=== PATIENT | female | born 1950 | race Caucasian/White ===

== ENCOUNTER → 2024-02-02 | Day surgery (SDC) | payer MEDICARE, MEDICAID ==
[~2024-02-02] VITALS: Ht 157.5 cm; Wt 63.5 kg
[~2024-02-02] MED LIST: ASPI-1497 PO; BALANCED SALT IRRIG SOLN COMB1 500ML OP NR; CHOL-36 PO; CYCLOPENTOLATE HCL 1% OPHTH DROPS 2ML LEFTEYE NR; FENTANYL CITRATE/PF 50MCG/ML 2ML VIAL ONE; FOLI-43 PO; HYALURONATE SODIUM 10 MG/ML 0.55ML SYRINGE IO ONE; KETOROLAC 30MG/ML VIAL ONE; LACTATED RINGERS 1,000 ML IV SCH; METH2.5T MT; MIDAZOLAM HCL 2 MG/2 ML VIAL ONE; PHENYLEPHRINE HCL 10% OPHTH DROPS 5ML LEFTEYE NR; PRAV20TA57 PO; PRED2.5T4 PO; TROPICAMIDE 1% OPHTH DROPS 15ML LEFTEYE NR; TRYPAN BLUE 0.5 ML DISP.SYRIN IO ONE
[2024-02-02 10:49] LABS: BASOPHILS % 1.1 % (0.0-2.0); EOSINOPHILS % 4.4 % (0.0-5.0); HEMATOCRIT. 34.6 % (36.0-48.0); HEMOGLOBIN. 11.7 g/dL (12.0-16.0); LYMPHOCYTES % 40.2 % (20.0-50.0); MEAN CORPUSCULAR HEMOGLOBIN 32.3 pg (28.0-32.0); MEAN CORPUSCULAR HGB CONC 33.9 g/dL (31.0-37.0); MEAN CORPUSCULAR VOLUME 95.3 fL (81.0-99.0); MONOCYTES % 8.8 % (2.0-8.0); NEUTROPHILS % 45.5 % (40.0-76.0); PLATELET 226 x1000/uL (130-400); RED BLOOD CELL COUNT 3.63 mill/uL (4.2-5.4); RED CELL DISTRIBUTION WIDTH 13.7 % (11.6-14.6); WHITE BLOOD COUNT 8.4 x1000/uL (4.5-11.0)
[2024-02-02 10:55] LABS: CHLORIDE 105 mEq/L (98-107); POTASSIUM 3.9 mEq/L (3.5-5.1); SODIUM 140 mEq/L (136-145)
[2024-02-02 10:56] LABS: CARBON DIOXIDE 29 mEq/L (21-32)
[2024-02-02 10:57] LABS: CALCIUM 8.9 mg/dL (8.7-10.4)
[2024-02-02 11:01] LABS: CREATININE 0.9 mg/dL (0.6-1.0); GLUCOSE 89 mg/dL (70-105); UREA NITROGEN BLOOD 16 mg/dL (9-23)
== END | disposition home or self-care (01) ==
LOC: OR 10:05
PROVIDERS: ATTEND Ophthalmology
DX: H25.89 Other age-related cataract (principal); M19.90 Unspecified osteoarthritis, unspecified site; K21.9 Gastro-esophageal reflux disease without esophagitis; Z79.899 Other long term (current) drug therapy; Z79.82 Long term (current) use of aspirin; Z98.890 Other specified postprocedural states
CPT/HCPCS: 80048; 85025; 36415; 93005; 66984; J3010; Q9957; J1885; J2250; J3490; A4217; Z7610 ×20; V2632